=== PATIENT | female | born 1950 | race Caucasian/White ===

== ENCOUNTER → 2018-05-09 12:51 | Outpatient (CLI) | payer MEDICARE, BC ==
--- NOTE | ~2018-05-09 | HEMODYNAMI ---
PATIENT:DIANA RIZZO MEDICAL RECORD: [id number] : 46 LOCATION:[place] ADMISSION DATE: 05/09/18 Generatedon:05/09/201813:59 Patient name: DIANA RIZZO Patient #: [id number] SSN: : 1950 Date of study: 05/09/2018 Page: Of Hemodynamic Procedure Report Patient Data Patient Demographics Procedure consent was obtained First Name: DIANA Gender: Female Last Name: SO : 1950 Patient #: [id number] Age: 68 year(s) Race: Unknown Additional ID: [id number] Contact details Address: [address] [place] [address] State: [place] City: [place] Zip code: [address] Past Medical History Allergies Allergen Reaction Date Comments Reported Codeine 05/09/2018 Tetracycline 05/09/2018 Admission Admission Data Admission Date: 05/09/2018 Admission Time: 12:51 Procedure Procedure Types Cath Procedure Peripheral Cath Diagnostic Procedure Miscellaneous Epidural Steroid Injection Procedure Description Procedure Date Procedure Date: 05/09/2018 Procedure Start Time: 13:42 Procedure Staff Name Function Derrell Zuñiga RT Monitor Sienna Calabrese RN Nurse Rosa Fiore MD Performing Physician Procedure Data Cath Procedure Fluoroscopy Diagnostic fluoroscopy Total fluoroscopy Time: 1.1 time: 1.1 min min Diagnostic fluoroscopy Total fluoroscopy dose: 10 dose: 10 mGy mGy Contrast Material Contrast Material Type Amount (ml) Isovue 300 2 Hemodynamics Rest Pre Cath Intra NCS Post Cath Procedure Log Time Note 13:29:51 Derrell Zuñiga RT (R) (CV) sent for patient. Start room use. 13:30:06 Patient received from Other to IR Alert and oriented. Tansferred to table in Supine position. 13:30:08 Correct patient and procedure confirmed by team. 13:30:10 Signed procedure consent form obtained from patient. 13:30:13 Full Disclosure recording started 13:30:14 - 13:30:16 Family in waiting room. 13:30:17 Patient NPO since Midnight. 13:30:31 Patient allergic to Codeine 13:30:41 Patient allergic to Tetracycline 13:30:44 Is patient on blood thinner?No 13:30:55 Right groin area was prepped with betadine and draped in sterile fashio n 13:39:09 Physician arrived 13:39:10 --------ALL STOP TIME OUT------ 13:39:17 Right groin site verified by team. 13:39:25 Sedation plan: Local Anesthetic Medication:Lidocaine 13:41:49 Procedure started. 13:42:00 Local anesthetic to right hip with Lidocaine 1% by Rosa Fiore MD.INITIA L ACCESS ONLY 13:42:29 SAFE-T PLUS MYELOGRAM TRAY opened to sterile field. 13:55:20 Procedure ended.(Physican Out) 13:55:35 Fluoroscopy time 01.10 minutes. 13:55:38 Fluoroscopy dose: 10 mGy 13:55:38 Flurop Dose total: 10 13:55:53 Contrast amount:Isovue 300 2ml. 13:55:55 Sharps counted by scrub and verified by R.N. 13:56:24 post procedure instructions given verbally to patient and sent home 13:56:38 bandaide appplied to rt hip area 13:57:31 Full Disclosure recording stopped Device Usage Item Name Manufacture Quantity Catalog Hospital Part Current Minimal Lot# / Number Charge Number Stock Stock Serial# Code SAFE-T [employer] 1 [id number] PLUS MYELOGRAM TRAY Signature Audit [place] Stage Time Signature Unsigned Intra-Procedure 05/09/2018 Derrell Zuñiga RT 1:57:26 PM Zara RT (R) (CV) 05/09/2018 (R) (CV) 1:59:07 PM Intra-Procedure 05/09/2018 Derrell 1:59:46 PM Zara RT (R) (CV) Signatures Monitor : Derrell Signature : Zara RT Date : Time : [address] [place] [address]
== END | disposition home or self-care (01) ==
LOC: D.SP 12:51
DX: M16.11 Unilateral primary osteoarthritis, right hip (principal); Z01.812 Encounter for preprocedural laboratory examination